=== PATIENT | female | born 1960 | race African-American/Black ===

== ENCOUNTER 2016-07-05 09:04 | Outpatient (CLI) ==
[2015-04-27 08:30] VITALS: BMI 23.6
[2016-07-05 12:54] LABS: EOSINOPHILS # (AUTO) 0.2 K/ul (0.0-0.7); EOSINOPHILS % (AUTO) 5.4 % (0.0-7.0); HEMATOCRIT 40.7 % (37.0-47.0); HEMOGLOBIN 13.2 g/dl (12.0-16.0); IMMATURE GRANULOCYTE % (AUTO) 0.2 % (0.0-5.0); LYMPHOCYTES # (AUTO) 0.7 K/uL (0.60-3.4); LYMPHOCYTES % (AUTO) 16.3 (10.0-50.0); MEAN CORPUSCULAR HEMOGLOBIN 30.3 pg (27.0-31.0); MEAN CORPUSCULAR HGB CONC 32.4 (31.8-35.4); MEAN CORPUSCULAR VOLUME 93.3 fl (81.0-99.0); MONOCYTES # (AUTO) 0.4 K/uL (0.4-2.0); NEUTROPHILS # (AUTO) 2.8 K/ul (2.0-6.9); NEUTROPHILS % (AUTO) 67.1; PLATELET COUNT 204 10^3/uL (140-440); RED BLOOD COUNT 4.36 10^6/ul (4.20-5.40)
[2016-07-05 13:39] LABS: ALBUMIN 3.9 g/dL (3.4-5.0); ALBUMIN/GLOBULIN RATIO 1.18; ANION GAP 12.6; BILIRUBIN,TOTAL 0.68 mg/dL (0.00-1.20); BUN/CREATININE RATIO 20.73; CALCIUM 9.5 mg/dL (8.2-10.2); CHOL/HDL RATIO 2.1 (4.5-5.5); CREATININE 0.82 mg/dL (0.60-1.30); POTASSIUM 4.6 mmol/L (3.5-5.10); TOTAL PROTEIN 7.2 g/dL (6.4-8.2)
== END 2016-07-05 09:05 | disposition home or self-care (01) ==
LOC: LAB 09:04
PROVIDERS: ATTEND Nurse Practitioner Family
DX: I10 Essential (primary) hypertension (principal); E55.9 Vitamin D deficiency, unspecified
CPT/HCPCS: 36415; 80053; 80061; 82306; 84443; 85025

== ENCOUNTER 2016-08-11 08:05 | Outpatient (CLI) ==
[2015-04-27 08:30] VITALS: BMI 23.6
--- NOTE | 2016-08-11 08:48 | MAMMO ---
EXAM: Bilateral digital screening mammogram History: Screening Comparison: Bilateral mammogram 03/10/2015 Findings: MLO and CC views of bilateral breasts demonstrate scattered fibroglandular breast parench yma. There are no dominant masses, no suspicious microcalcifications and no architectural distortio ns Impression: Stable negative mammogram. Recommend followup routine screening mammography in 1 year. BIRADS 1
== END 2016-08-11 08:06 | disposition home or self-care (01) ==
LOC: RAD 08:05
PROVIDERS: ATTEND Nurse Practitioner Family
DX: Z12.31 Encounter for screening mammogram for malignant neoplasm of breast (principal)

== ENCOUNTER 2016-09-07 15:21 | Outpatient (CLI) ==
[2015-04-27 08:30] VITALS: BMI 23.6
[2016-09-07 18:56] LABS: ERYTHROCYTE SEDIMENTATION RATE 11 mm/hr (0-20); ESR INTERNAL QC INTERNAL QC VALID
[2016-09-08 10:17] LABS: ANTI-NUCLEAR ANTIBODY SCREEN Negative (Negative); RHEUMATOID ARTHRITIS FACTOR 18.5 IU/mL (0.0-13.9)
== END 2016-09-07 15:22 | disposition home or self-care (01) ==
LOC: LAB 15:21
PROVIDERS: ATTEND Nurse Practitioner Family
DX: R43.9 Unspecified disturbances of smell and taste (principal)
CPT/HCPCS: 36415; 82607; 85651; 86038; 86235; 86430

== ENCOUNTER 2016-09-13 14:48 | Outpatient (CLI) ==
[2015-04-27 08:30] VITALS: BMI 23.6
--- NOTE | 2016-09-13 16:53 | MRI ---
EXAM: Brain MRI without contrast. HISTORY: Unspecified disturbances of smell and taste. COMPARISON: Head CT 06/15/2013. TECHNIQUE: Multiplanar, multisequence MR images were acquired of the brain without contrast. FINDINGS: The midline structures are central and the craniocervical junction is unremarkable. The ventricles and sulci are normal in size and configuration. There are no abnormal extra-axial fluid collections. The brain parenchyma has no diffusion restriction to suggest acute hypoperfusion or infarction. Sma ll scattered T2 / FLAIR hyperintensities are present in the supratentorial white matter consistent w ith minor leukomalacia. There is no abnormal dark gradient echo signal. The corpus callosum is nor mal in size and configuration. The pituitary gland is unremarkable. There are no intraorbital masses. Paranasal sinuses, middle ears and mastoids are clear. Flow voids are present in the major intracranial arteries and dural venous sinuses. There is moderate discogenic disease at C3-4 which mildly indents the distal cervical cord. IMPRESSION: 1. No intracranial mass, hemorrhage or acute cerebral infarct. 2. Stable minor leukomalacia which is nonspecific.
== END 2016-09-13 14:49 | disposition home or self-care (01) ==
LOC: RAD 14:48
PROVIDERS: ATTEND Nurse Practitioner Family
DX: R43.9 Unspecified disturbances of smell and taste (principal)

== ENCOUNTER 2016-12-29 15:43 | Outpatient (CLI) ==
[2015-04-27 08:30] VITALS: BMI 23.6
--- NOTE | 2016-12-29 16:19 | DI ---
Exam: Three x-rays of the left foot. Comparison: None available. Reason for exam: Left foot pain. FINDINGS: No acute fracture or malalignment. The joint spaces are well maintained. No unexplained calcific soft tissue densities or radiopaque retained foreign bodies. Impression: No acute fracture or dislocation in the left foot
== END 2016-12-29 15:44 | disposition home or self-care (01) ==
LOC: RAD 15:43
PROVIDERS: ATTEND Emergency Medicine
DX: M79.672 Pain in left foot (principal)

== ENCOUNTER 2017-01-19 15:09 | Outpatient (CLI) ==
[2015-04-27 08:30] VITALS: BMI 23.6
[2017-01-19 15:44] LABS: CREATININE 0.93 mg/dL (0.60-1.30)
== END 2017-01-19 15:10 | disposition home or self-care (01) ==
LOC: LAB 15:09
PROVIDERS: ATTEND Psychiatry & Neurology Neurology
DX: Z01.812 Encounter for preprocedural laboratory examination (principal)
CPT/HCPCS: 36415; 82565

== ENCOUNTER 2017-01-20 15:02 | Outpatient (CLI) ==
[2015-04-27 08:30] VITALS: BMI 23.6
--- NOTE | 2017-01-21 06:57 | MRI ---
EXAM: Brain MRI with and without contrast. HISTORY: Loss of sense of smell. COMPARISON: Brain MRI 09/13/[address] 06/15/2013. TECHNIQUE: Multiplanar, multisequence MR images were acquired of the brain before and after adminis tration of intravenous contrast. FINDINGS: The midline structures are central and the craniocervical junction is unremarkable. The ventricles and sulci are generally normal in size and configuration. There is no change in the smal l 1.5 cm x 1.2 cm x 1.2 cm localized extra-axial fluid collection along the paramidline right fronta l lobe at the convexity that may represent a prominent sulcus and adjacent cerebrospinal fluid or a small arachnoid cyst. The brain parenchyma has no diffusion restriction to suggest acute hypoperfusion or infarction. The re are small scattered T2 hyperintensities in the supratentorial white matter consistent with minor leukomalacia. There is no abnormal dark gradient echo signal or enhancing lesions. The corpus call osum has a normal configuration. The pituitary gland is low normal in size with a 1 mm focus of T1 hypointensity in the pars intermedia that is nonspecific. There are no intraorbital masses. Mild rightward nasal septal deviation is present. There is a trac e of mucus in the posterior sphenoid sinus. Otherwise the paranasal sinuses, middle ears and mastoi ds are clear. There is no abnormal contrast enhancement in the internal auditory canals labyrinthin e structures. Flow voids are present in the major intracranial arteries and dural venous sinuses. Moderate discogenic disease is present at C3-4 which causes mild spinal stenosis. IMPRESSION: 1. No intracranial mass, hemorrhage or acute cerebral infarct. 2. Minor leukomalacia which is nonspecific.
== END 2017-01-20 15:03 | disposition home or self-care (01) ==
LOC: RAD 15:02
PROVIDERS: ATTEND Psychiatry & Neurology Neurology
DX: R90.89 Other abnormal findings on diagnostic imaging of central nervous system (principal); R43.0 Anosmia

== ENCOUNTER 2017-01-28 13:25 | Outpatient (CLI) ==
[2015-04-27 08:30] VITALS: BMI 23.6
--- NOTE | 2017-01-28 14:23 | US ---
EXAM: ULTRASOUND CAROTID DUPLEX, BILATERAL HISTORY: Abnormal MRI of the brain indicating leukomalacia FINDINGS: Burr-scale ultrasound, color Doppler and spectral analysis was performed. Velocities are in meters per second. By burr scale and color Doppler imaging, there appears to be only minimal intimal thickening and scat tered atherosclerotic plaque in both carotid systems, including the bulbs and internal carotid arteri es. RIGHT: External carotid artery peak systolic velocity: 0.6 Common carotid artery peak systolic velocity/end diastolic velocity: 0.5/0.2 Internal carotid artery peak systolic velocity: 1.0 ICA/CCA peak systolic velocity ratio: 2.1 ICA end diastolic velocity: 0.4 LEFT: External carotid artery peak systolic velocity: 1.1 Common carotid artery peak systolic velocity/end diastolic velocity: 0.5/0.1 Internal carotid artery peak systolic velocity: 0.7 ICA/CCA peak systolic velocity ratio: 1.4 ICA end diastolic velocity: 0.3 The right and left vertebral arteries were antegrade. IMPRESSION: 1. By burr scale and color Doppler imaging, there appears to be only minimal intimal thickening and scattered atherosclerotic plaque in both carotid systems, including the bulbs and internal carotid ar teries. 2. The right and left internal carotid artery peak systolic velocities indicate no hemodynamically s ignificant stenosis. 3. Both vertebral arteries were antegrade.
== END 2017-01-28 13:26 | disposition home or self-care (01) ==
LOC: RAD 13:25
PROVIDERS: ATTEND Psychiatry & Neurology Neurology
DX: R90.89 Other abnormal findings on diagnostic imaging of central nervous system (principal)

== ENCOUNTER 2017-08-11 14:50 | Outpatient (CLI) ==
[2015-04-27 08:30] VITALS: BMI 23.6
== END 2017-08-11 14:51 | disposition home or self-care (01) ==
LOC: RAD 14:50
PROVIDERS: ATTEND Nurse Practitioner Family
DX: R10.32 Left lower quadrant pain (principal); R10.2 Pelvic and perineal pain

== ENCOUNTER 2017-08-30 15:00 | Outpatient (RCR) ==
[2015-04-27 08:30] VITALS: BMI 23.6
--- NOTE | 2017-08-30 08:36 | RS.OPPTEV2 ---
Date of Note: 08/26/17 Visit #: 1 Date of Evaluation: 08/26/17 Payer Source: Medicaid Date of Onset/Injury/Change in Status: 07/14/17 Surgery Performed?: No Treatment Diagnosis: partial hamstring tear BLE History of Condition/Mechanism of Injury:: pt states she was pushing a heavy cart at work and felt it pull. Prior Level of Function.....Patient was independent with: ADL's, Self Care, Work /Vocation, Caregiving, Ambulation/Mobility, Community Integration/Access Functional Limitations: Sleep, Sitting, Standing, Squatting, Ambulation Current Subjective/complaints:: pt states that pain is worse if she sits for very long. Treatment Side (optional): Bilateral *Precautions: n/a Medical History Medical History: Hypertension, Arthritis Medical History Comments:: fibromyalgia, angioedema Surgical History: Hysterectomy Smoking Status: Never smoker Diagnostic Testing/Imaging:: MRI at [facility]: degenerative changes which are most pronounced at the pubic symphysis, tendinosis and low grade partial tearing of hamstring tendons BLE, degenerative changes of the lower lumbar spine Hx Home Medications: cymbalta, med for HTN(couldn't remember the name), beronica Patient's Goals: decrease pain Pain Assessment - Pain Description Pain Location: BLE below gluteal fold at insertion of hamstrings, pt also reports discomfort in area of pubic symphisis since pushing on the heavy cart. Current Pain Intensity: 3 Worst Pain Intensity: 10 Functional Outcome Measure UE Functional Index: 54 (32%) - G Codes & Severity Modifier G Codes & Modifier: n/a Source of G Code score: n/a Observation - Observation Inspection: min hamstring tightness BLE, piriformis and IT band tight BLE Posture: Forward Head, Rounded Shoulders, Increased Thoracic Kyphosis, Decreased Lumbar Lordosis Handedness: Right Gait - Gait Pattern General Gait Pattern Observation: No Deviations/Normal General Range of Motion: BLE WFL's. BUE WFL's Muscle Strength: BUE 5/5. BLE 5/5 except hamstrings 4/5 - Special Test MORGAN Test: Negative Left, Negative Right Bernardo Test: Negative Left, Negative Right Pratik Test: Negative Left, Negative Right Palpation Palpation Findings: Tenderness Comments:: pt presents with tenderness to palpation of hamstring insertion. Sensation - Sensation Right Upper Extremity: Intact/Normal Left Upper Extremity: Intact/Normal Right Lower Extremity: Intact/Normal Left Lower Extremity: Intact/Normal Balance - Sitting Balance Static Sitting Balance: Normal Dynamic Sitting Balance: Normal - Standing Balance Static Standing Balance: Normal Dynamic Standing Balance: Normal Additional Comments: Additional Comments: Pain ellicited with patient in prone performing hamstring curl with resistance. - Heat/Cryotherapy Treatment: Cryotherapy Comments:: BLE at area of hamstring insertion Interventions - Exercise/Activities/Manual Therapy Exercises/Activities: pt performed gentle hamstring stretch, hamstring set, isometric hip add, resisted hip abd Manual Therapy: n/a HOME EXERCISE PROGRAM: pt given written HEP including: hamstring stretch, hamstring set, isometric hip add, - Charges Timed Code Treatment Minutes: 45 Total Treatment Time: 55 Procedures billed for this date of service:: eval low , cold pack EVALUATION COMPLEXITY LEVEL EVALUATION COMPLEXITY LEVEL: HISTORY: Low (OA, HTN, fibromyalgia), EXAM OF BODY SYSTEMS: Medium (pain, strength), CLINICAL PRESENTATION: Low (stable), CLINICAL DECISION MAKING: Low Assessment Assessment: pt presents with pain at area of hamstring insertion with increased tightness BLE hamstring, piriformis, IT band. pt also with decreased strength BLE Patient Education: Home Exercise Program, Education of Plan of Care Rehab Potential: Good Short Term Goals Goal #1: pt report pain <3/10 with activity Goal to be met by: 09/09/17 Goal #2: pt demonstrate decreased hamstring tightness BLE Goal to be met by: 09/09/17 Goal #3: pt independent with initial HEP Goal to be met by: 09/09/17 Process Controller Goals Goal #1: pt rate pain <2 with activity Goal to be met by: 09/23/17 Goal #2: Improved strength BLE hamstrings 5/5 Goal to be met by: 09/23/17 Goal #3: pt with decreased hamstring, piriformis and IT band tightness WFL's Goal to be met by: 09/23/17 Goal #4: pt report being able to perform work duties with decreased pain Goal to be met by: 09/23/17 Plan - Treatment to be Provided Procedures: Therapeutic Exercises, Therapeutic Activity, Neuromuscular Rehab, Manual Therapy, Massage, Patient Education Modalities: Electrical Stimulation, Ultrasound/Phonophoresis, Class IV Laser, Cryotherapy, Hot Packs - Treatment Plan Frequency: 2 X week Duration: 4 weeks ORDER # VISITS AND/OR THROUGH DATE: 09/23/17 - Treatment Code (1) Partial hamstring tear Code(s): S76.319A - STRAIN OF MSL/FASC/TND POST GRP AT THI LEV, UNSP THIGH, INIT Qualifiers: Encounter type: initial encounter Laterality: right Qualified Code(s): S76.311A - Strain of muscle, fascia and tendon of the posterior muscle group at thigh level, right thigh, initial encounter (2) Pain Code(s): R52 - PAIN, UNSPECIFIED (3) Muscle tightness Code(s): M62.89 - OTHER SPECIFIED DISORDERS OF MUSCLE (4) Partial hamstring tear Code(s): S76.319A - STRAIN OF MSL/FASC/TND POST GRP AT THI LEV, UNSP THIGH, INIT Qualifiers: Encounter type: initial encounter Laterality: left Qualified Code(s): S76.312A - Strain of muscle, fascia and tendon of the posterior muscle group at thigh level, left thigh, initial encounter
--- NOTE | 2017-08-31 11:26 | RS.OPPTDN ---
Subjective Date of Note: 08/30/17 Visit #: 2 Date of Evaluation: 08/26/17 Payer Source: Medicaid Treatment Diagnosis: partial hamstring tear BLE Current Subjective/complaints:: Patient reports pain at bilateral ischial tuberosity when pushing heavy cart at work. Also pain at the pubic symphysis with pushing and pulling carts. Reports she feels a good stretch today with assisted crossover/piriformis stretching. *Precautions: n/a Pain Assessment - Pain Description Pain Location: Bilateral proximal hamstrings at ischial tubersoity and at pubic symphysis. - Treatment Parameters/Method Applied: [id number] total with US at 1.5w/cm2, 7mins each to the prox hamstrings at bilateral ischial tubersoity prior to EX. Side-lying for each side. - Heat/Cryotherapy Treatment: Hot Pack ([id number] to the bilateral hamstring prior to US and EX. Patient in supine. ) Interventions - Exercise/Activities/Manual Therapy Exercises/Activities: Assisted hamstring stretch, piriformis and trunk rotation. Hamstring sets, isometric hip add, isometric hip flexion, pelvic tilts , pelvic clock sets. Ended with additional long stretching. Patient education on body mechanics and need for pelvic stability exercises. Total minutes of Exercise: 25mins Manual Therapy: n/a HOME EXERCISE PROGRAM: pt given written HEP including: hamstring stretch, hamstring set, isometric hip add, - Charges Timed Code Treatment Minutes: 39mins Total Treatment Time: 60mins Procedures billed for this date of service:: HP, US, EX2 Assessment: Patient attentive to patient education and motivated to progress exercise. 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
--- NOTE | 2017-09-01 15:14 | RS.CXNS ---
Date of scheduled appointment: 09/01/17 Type: Cancel (Patient left vm to cancel appointment today. Does not give reason. )
== END 2017-09-12 23:59 ==
PROVIDERS: ATTEND Nurse Practitioner Family
DX: S76.311D Strain of muscle, fascia and tendon of the posterior muscle group at thigh level, right thigh, subsequent encounter (principal); S76.312D Strain of muscle, fascia and tendon of the posterior muscle group at thigh level, left thigh, subsequent encounter; M62.89 Other specified disorders of muscle

== ENCOUNTER 2018-05-30 15:45 | Outpatient (CLI) ==
[2016-09-07 15:28] VITALS: BMI 23.6
--- NOTE | 2018-05-30 16:33 | DI ---
EXAM: Left calcaneus two views HISTORY: Foot pain FINDINGS: Bone and joint structures appear normal. There is no displaced fracture or joint dislocat ion seen. General bone density and soft tissues are within normal limits. IMPRESSION: Findings within normal limits.
--- NOTE | 2018-05-30 16:33 | DI ---
EXAM: Right calcaneus two views HISTORY: Foot pain FINDINGS: Bone density is normal. There is subtle bony spurring of the posterior calcaneus. Soft t issues are otherwise of normal. No fracture or joint arthropathy. No joint effusion. IMPRESSION: 1. Subtle bony spurring of the posterior calcaneus consistent with early enthesopathy.
== END 2018-05-30 15:46 | disposition home or self-care (01) ==
LOC: RAD 15:45
PROVIDERS: ATTEND Nurse Practitioner Family
DX: M79.672 Pain in left foot (principal); M79.671 Pain in right foot

== ENCOUNTER 2018-07-24 14:47 | Outpatient (CLI) | payer MEDICAID, OTHER ==
[2016-09-07 15:28] VITALS: BMI 23.6
--- NOTE | 2018-07-26 09:06 | MAMMO ---
EXAM: Bilateral digital screening mammogram (2-D and 3-D) History: Screening Comparison: Bilateral mammogram 08/11/2016 Findings: MLO and CC views of bilateral breasts demonstrate scattered fibroglandular breast parenchy ma. CAD was reviewed by the radiologist. Tomosynthesis was performed. There are no dominant masses , no suspicious microcalcifications and no architectural distortions Impression: Stable negative mammogram. Recommend followup routine screening mammography in 1 year. BIRADS 1, negative
== END 2018-07-24 14:48 | disposition home or self-care (01) ==
LOC: RAD 14:47
PROVIDERS: ATTEND Nurse Practitioner Family
DX: Z12.31 Encounter for screening mammogram for malignant neoplasm of breast (principal)

== ENCOUNTER 2018-09-02 09:09 | Outpatient (CLI) ==
[2016-09-07 15:28] VITALS: BMI 23.6
== END 2018-09-02 09:10 | disposition home or self-care (01) ==
LOC: LAB 09:09
PROVIDERS: ATTEND Nurse Practitioner Family
DX: I10 Essential (primary) hypertension (principal)
CPT/HCPCS: 36415; 80053; 80061; 84443; 85025

== ENCOUNTER 2018-09-06 16:35 | Outpatient (CLI) ==
[2016-09-07 15:28] VITALS: BMI 23.6
== END 2018-09-06 16:36 | disposition home or self-care (01) ==
LOC: RHC-LAB 16:35
PROVIDERS: ATTEND Nurse Practitioner Family
DX: R53.83 Other fatigue (principal); E55.9 Vitamin D deficiency, unspecified
CPT/HCPCS: 36415; 82306; 82607